=== PATIENT | female | born 1985 | race Caucasian/White ===

== ENCOUNTER 2016-12-06 07:25 | Emergency (ER) | payer OTHER ==
[2016-12-06 07:25] VITALS: BMI 19.3
--- NOTE | 2016-12-06 08:26 | C.PDOC ---
History Of Present Illness 31 y/o female presents to ED for evaluation of right foot pain after tripping over curb, twisting and injuring her right foot last night. Notes that pain is worse when ambulating. Otherwise, denies any extremity weakness, numbness, skin changes, or any other injury. Time Seen by Provider: 12/06/16 07:35 Chief Complaint (Nursing): Lower Extremity Problem/Injury History Per: Patient History/Exam Limitations: no limitations Onset/Duration Of Symptoms: Days (1) Current Symptoms Are (Timing): Still Present Additional History Per: Patient - Ankle/Foot Description Of Injury: Twisted Past Medical History Reviewed: Historical Data, Nursing Documentation, Vital Signs Vital Signs: Last Vital Signs Temp 98.3 F 12/06/16 07:28 Pulse 82 12/06/16 07:28 Resp 16 12/06/16 07:28 BP 116/70 12/06/16 07:28 Pulse Ox 99 12/06/16 09:05 - [facility] Procedures NASAL LACERATION SUTURE (06/09/13) TETANUS TOXOID ADMINIST (06/09/13) Family History: States: Unknown Family Hx - Social History Hx Tobacco Use: Yes Hx Alcohol Use: No Hx Substance Use: No - Immunization History Hx Tetanus Toxoid Vaccination: No Hx Influenza Vaccination: No Hx Pneumococcal Vaccination: No Review Of Systems Except As Marked, All Systems Reviewed And Found Negative. Constitutional: Negative for: Fever, Chills Musculoskeletal: Positive for: Foot Pain (right) Skin: Negative for: Rash, Bruising Neurological: Negative for: Weakness, Numbness Physical Exam - Physical Exam Appears: Non-toxic, No Acute Distress Skin: Warm, Dry, No Rash Head: Atraumatic, Normacephalic Extremity: Normal ROM (FROM of right foot), Tenderness (mild tenderness to distal and dorsal aspect of right foot), Capillary Refill (<2 sec.), No Deformity, Swelling (mild swelling to distal and dorsal aspect of right foot) Extremity: Bilateral: Normal Color And Temperature, Normal ROM Pulses: Left Dorsalis Pedis: Normal, Right Dorsalis Pedis: Normal Neurological/Psych: Oriented x3, Normal Speech, Normal Motor, Normal Sensation ED Course And Treatment O2 Sat by Pulse Oximetry: 99 (on RA) Pulse Ox Interpretation: Normal - Other Rad Right foot x-ray X-Ray: Viewed By Me, Read By Radiologist Interpretation: Accession No. : [id number]. Patient Name / ID : OBINNA REED / [id number]. Exam Date : 12/06/2016 07:54:03 ( Approved ). Study Comment : Sex / Age : F / 31Y. Creator : Hardik Roach MD. Dictator : Hardik Roach MD. Construction Trades Contractor : [employer] Certified Powerplant Mechanic : Hardik Roach MD. Approver2 : Report Date : 12/06/2016 08:27:04. My Comment : . Right foot three views. History: Foot injury. Comparison: None available. Findings: Prominent bony spurring with hook like osteophyte seen dorsally in the midfoot at the posterior navicular bone at its articulation with the anterior talus. Mild hallux valgus deformity. Impression: Prominent bony spurring with hook like osteophyte seen dorsally in the midfoot at the posterior navicular bone at its articulation with the anterior talus. Mild hallux valgus deformity. If pain persists, consider MRI. Medical Decision Making Medical Decision Making: Right foot x-ray ordered and reviewed. Patient was given Motrin for pain. Ortho shoe applied by auto brake technician and checked by me On reassessment, pt reports feeling better. Pt is able to ambulate with a steady gait. No acute distress. Patient is being discharged home, with instructions to follow up with PMD/Podiatry in 1-2 days for further evaluation. Disposition - Disposition Referrals: Podiatry Clinic [Outside] Keyla Monet DPM [Staff Provider] - Disposition: HOME/ ROUTINE Disposition Time: 09:09 Condition: GOOD Additional Instructions: Follow up with the doctor within 1-2 days without fail. REturn if worsened Instructions: Foot Sprain (ED) Forms: [facility] [facility] (French) - Clinical Impression Clinical Impression: Foot sprain - PA / PULMONOLOGY TECHNICIAN / Resident Statement MD/DO has reviewed & agrees with the documentation as recorded. - Scribe Statement The provider has reviewed the documentation as recorded by the Scribe Kripal Hooper All medical record entries made by the Leobardo were at my direction and personally dictated by me. I have reviewed the chart and agree that the record accurately reflects my personal performance of the history, physical exam, medical decision making, and the department course for this patient. I have also personally directed, reviewed, and agree with the discharge instructions and disposition.
[2016-12-06 09:17] VITALS: BP 113/68; PULSE 70; RESP 17; TEMP 98.5
[2016-12-06 09:31] VITALS: O2SAT 99
== END 2016-12-06 09:33 | disposition home or self-care (01) ==
LOC: C.ER 07:25
DX: S93.601A Unspecified sprain of right foot, initial encounter (principal); X50.9XXA Other and unspecified overexertion or strenuous movements or postures, initial encounter

== ENCOUNTER 2017-03-23 17:49 | Emergency (ER) | payer OTHER ==
[2017-03-23 17:49] VITALS: BMI 19.3
[2017-03-23 18:03] VITALS: RESP 18
[2017-03-23] MEDS ORDERED: Sodium Chloride 0.9% 1,000 ML IV ONE (18:51)
--- NOTE | 2017-03-23 18:57 | C.PDOC ---
History Of Present Illness 31 year old female presents to the ED for evaluation after she had a syncopal episode while she was talking to her sister at home earlier today. Patient also complains of nausea for 2 weeks and suspects she may be . Patient took an at-home test which was negative. She denies fever, chills, chest pain, abdominal pain, vaginal bleeding. Time Seen by Provider: 03/23/17 18:49 Chief Complaint (Nursing): Syncope History Per: Patient History/Exam Limitations: no limitations Onset/Duration Of Symptoms: Mins Current Symptoms Are (Timing): Better Number Of Syncopal Episodes: 1 Associated Symptoms Preceding Syncopal Episode: No Predromal Symptoms (Sudden Onset) Additional History Per: Patient Past Medical History Reviewed: Historical Data, Nursing Documentation, Vital Signs Vital Signs: Last Vital Signs Temp 97.4 F L 03/23/17 17:59 Pulse 51 L 03/23/17 17:59 Resp 18 03/23/17 17:59 BP 91/60 L 03/23/17 17:59 Pulse Ox 100 03/23/17 20:13 - Medical History PMH: No Chronic Diseases Surgical History: No Surg Hx - [facility] Procedures NASAL LACERATION SUTURE (06/09/13) TETANUS TOXOID ADMINIST (06/09/13) Family History: States: Unknown Family Hx - Social History Hx Tobacco Use: Yes Hx Alcohol Use: No Hx Substance Use: No - Immunization History Hx Tetanus Toxoid Vaccination: No Hx Influenza Vaccination: No Hx Pneumococcal Vaccination: No Review Of Systems Gastrointestinal: Positive for: Nausea. Negative for: Abdominal Pain Genitourinary: Negative for: Vaginal Bleeding Neurological: Positive for: Other (syncope ) Physical Exam - Physical Exam Appears: Non-toxic, No Acute Distress, Other ( female ) Skin: Normal Color, Warm, Dry Head: Atraumatic, Normacephalic Eye(s): bilateral: Normal Inspection Ear(s): Bilateral: Normal Nose: Normal, No Discharge Oral Mucosa: Moist Throat: Normal, No Erythema, No Exudate Neck: Supple Chest: Symmetrical, No Deformity, No Tenderness Cardiovascular: Rhythm Regular, No Murmur Respiratory: Normal Breath Sounds, No Rales, No Rhonchi, No Wheezing Gastrointestinal/Abdominal: Soft, No Tenderness, No Guarding, No Rebound Extremity: Normal ROM, Capillary Refill (less than 2 seconds ) Neurological/Psych: Oriented x3, Normal Speech, Normal Cognition Gait: Steady ED Course And Treatment - Laboratory Results Result Diagrams: 03/23/17 19:39 Lab Interpretation: Abnormal (tox + THC) Urine POC: Negative ECG: Interpreted By Me ECG Rhythm: Sinus Rhythm ECG Interpretation: Normal Rate From EC O2 Sat by Pulse Oximetry: 100 (on RA) Pulse Ox Interpretation: Normal - Radiology CXR: Interpreted by Me CXR Interpretation: Yes: No Acute Disease - Other Rad CXR X-Ray: Interpreted by Me, Viewed By Me, Read By Radiologist Interpretation: IMPRESSION: No focal consolidation, significant pleural effusion, or definite pneumothorax identified. 13 mm rounded opacity at the right upper lung between the 3rd and 4th anterior ribs with central lucency may be related to external artifact; correlate clinically. Progress Note: Bloodwork, Urinalysis, CXR, EKG ordered and reviewed. Zofran IVP and IV Fluids administered. Reevaluation Time: 20:17 Reassessment Condition: Improved Medical Decision Making Medical Decision Making: vasovagal syncope, no UTI, no preg cannabis abuse. Disposition Doctor Will See Patient In The: Office Counseled Patient/Family Regarding: Studies Performed, Diagnosis - Disposition Disposition: HOME/ ROUTINE Disposition Time: 20:18 Condition: GOOD Forms: [employer] [facility] (Hebrew) - Clinical Impression Clinical Impression: Syncope - Scribe Statement The provider has reviewed the documentation as recorded by the Scribe (Megan Hooper) Provider Attestation: All medical record entries made by the Scribe were at my direction and personally dictated by me. I have reviewed the chart and agree that the record accurately reflects my personal performance of the history, physical exam, medical decision making, and the department course for this patient. I have also personally directed, reviewed, and agree with the discharge instructions and disposition.
--- NOTE | 2017-03-23 19:08 | RAD ---
HISTORY: Palpations COMPARISON: None available. TECHNIQUE: Chest, one view. FINDINGS: LUNGS: No focal consolidation. 13 mm rounded opacity at the right upper lung between the 3rd and 4th anterior ribs with central lucency may be related to external artifact; correlate clinically. Please note that chest x-ray has limited sensitivity for the detection of pulmonary masses. PLEURA: No significant pleural effusion identified. No definite pneumothorax . CARDIOVASCULAR: The cardiomediastinal silhouette appears within normal limits of size. OSSEOUS STRUCTURES: No acute osseous abnormality identified. VISUALIZED UPPER ABDOMEN: Unremarkable. OTHER FINDINGS: None. IMPRESSION: No focal consolidation, significant pleural effusion, or definite pneumothorax identified. 13 mm rounded opacity at the right upper lung between the 3rd and 4th anterior ribs with central lucency may be related to external artifact; correlate clinically.
[2017-03-23] MEDS ORDERED: Sodium Chloride 0.9% 1,000 ML ONE (19:20)
[2017-03-23 19:54] LABS: HCG,QUALITATIVE URINE NEGATIVE (NEGATIVE)
[2017-03-23 19:58] LABS: ALB/GLOB RATIO 1.4 (1.0-2.1); ALBUMIN 4.6 g/dL (3.5-5.0); ALT/SGPT 35 U/L (9-52); AST/SGOT 23 U/L (14-36); BLOOD UREA NITROGEN 11 mg/dL (7-17); CALCIUM 8.6 mg/dl (8.6-10.4); GFR AFRICAN-AMERICAN > 60; GFR NON-AFRICAN AMERICAN > 60
[2017-03-23 20:04] LABS: SQUAMOUS EPITHIAL 7 /hpf (0-5); URINE BACTERIA OCC (<OCC); URINE BILIRUBIN NEGATIVE (NEGATIVE); URINE BLOOD 3+ (NEGATIVE); URINE CLARITY Hazy (Clear); URINE COLOR Red (YELLOW); URINE GLUCOSE (UA) NORMAL (Normal); URINE LEUKOCYTE ESTERASE NEG Leu/uL (Negative); URINE NITRATE NEGATIVE (NEGATIVE); URINE PROTEIN 2+ mg/dL (NEGATIVE); URINE UROBILINOGEN NORMAL mg/dL (0.2-1.0)
[2017-03-23 20:11] LABS: BARBITURATES, UR NEGATIVE (NEGATIVE); BENZODIAZEPINES, UR NEGATIVE (NEGATIVE); OPIATES, UR NEGATIVE (NEGATIVE); PHENCYCLIDINE, UR NEGATIVE (NEGATIVE)
[2017-03-23 20:33] LABS: BASO % 0.2 % (0.0-2.0); EOS % 0.2 % (0.0-4.0); HEMOGLOBIN 12.2 g/dL (11.0-16.0); LYMPH # 0.5 K/uL (1.0-4.3); LYMPH % 3.3 % (20.0-40.0); MEAN CELL VOLUME 91.4 fL (81.0-99.0); MEAN CORPUSCULAR HEMOGLOBIN 31.8 pg (27.0-31.0); MEAN CORPUSCULAR HGB CONC 34.8 g/dL (33.0-37.0); MEAN PLATELET VOLUME 7.9 fL (7.2-11.7); MONO # 0.8 K/uL (0.0-0.8); MONO % 5.3 % (0.0-10.0); NEUT # 14.4 K/uL (1.8-7.0); PLATELET COUNT 270 K/uL (130-400); RBC 3.84 Mil/uL (3.80-5.20); RED CELL DISTRIBUTION WIDTH 12.6 % (11.5-14.5); WHITE BLOOD COUNT 15.8 K/uL (4.8-10.8)
[2017-03-23 20:52] LABS: BANDS 3 % (0-2); LYMPHOCYTE 3 % (20-40); MONOCYTE 5 % (0-10); NEUTROPHIL 89 % (50-75); PLATELET ESTIMATE NORMAL (NORMAL); TOTAL CELLS COUNTED 100
[2017-03-23 21:15] VITALS: BP 100/60; PULSE 67; TEMP 98; O2SAT 96
--- NOTE | 2017-03-25 23:08 | CARD ---
APPROVED REPORT EKG Measurement Heart [id number] <Conclusion> Normal sinus rhythm Normal ECG
== END 2017-03-23 21:10 | disposition home or self-care (01) ==
LOC: C.ER 17:49
DX: R55 Syncope and collapse (principal)
CPT/HCPCS: 71045; 80053; 80320; 80324; 80345; 80346; 80349; 80353; 80358; 80361; 81001; 83992; 84484; 84703; 85025; 96374; 99285; J2405; J7040